=== PATIENT | male | born 1970 | race Two or more races ===

== ENCOUNTER 2016-07-06 13:39 | Outpatient (CLI) ==
[2014-11-02 18:25] VITALS: BMI 46.5
[2016-07-06 14:20] LABS: BASOPHILS % (AUTO) 0.6 % (0.0-3.0); EOSINOPHILS # (AUTO) 0.1 K/ul (0.0-0.7); EOSINOPHILS % (AUTO) 1.3 % (0.0-7.0); HEMATOCRIT 40.4 % (42.0-52.0); HEMOGLOBIN 14.2 g/dl (14.0-18.0); IMMATURE GRANULOCYTE % (AUTO) 0.2 % (0.0-5.0); LYMPHOCYTES # (AUTO) 2.1 K/uL (0.60-3.4); LYMPHOCYTES % (AUTO) 33.1 (10.0-50.0); MEAN CORPUSCULAR HEMOGLOBIN 29.8 pg (27.0-31.0); MEAN CORPUSCULAR HGB CONC 35.1 (31.8-35.4); MEAN CORPUSCULAR VOLUME 84.7 fl (80.0-94.0); MONOCYTES # (AUTO) 0.3 K/uL (0.4-2.0); MONOCYTES % (AUTO) 5.2 (0-10); NEUTROPHILS # (AUTO) 3.8 K/ul (2.0-6.9); NEUTROPHILS % (AUTO) 59.6; PLATELET COUNT 195 10^3/uL (140-440); RED BLOOD COUNT 4.77 10^6/ul (4.70-6.10)
--- NOTE | 2016-07-06 14:29 | US ---
EXAM: Scrotal ultrasound HISTORY: Right testicular pain COMPARISON: None TECHNIQUE: Scrotal ultrasound was performed FINDINGS: Right: Right testicle measures 2.1 x 3.9 x 2.8 cm. Right testicle normal in echogenicity and vascu larity. Normal arterial Doppler flow in the right testicle. There is a 0.8 x 0.4 x 0.6 cm right ep ididymal head cyst. Visualized portion epididymis appears normal with portions of the epididymis not visualized. Trace right hydrocele. Small right varicocele. Left: Left testicle measures 2.7 x 2.5 x 2.6 cm. Left testicle normal in echogenicity vascularity. Normal arterial Doppler flow in the left testicle. Visualized portion epididymis appears normal w ith portions of the epididymis not visualized. No hydrocele. Small left varicocele. IMPRESSION: 1. Normal right and left testicle. 2. Small right epididymal head cyst. Technologist notes this corresponds with an area of "knot" 3. Mild bilateral varicoceles. 4. Trace right hydrocele
[2016-07-06 14:46] LABS: ALBUMIN 4.1 g/dL (3.4-5.0); ALBUMIN/GLOBULIN RATIO 1.24; ANION GAP 10.9; BILIRUBIN,TOTAL 0.69 mg/dL (0.00-1.20); BUN/CREATININE RATIO 15.38; CREATININE 0.78 mg/dL (0.60-1.10); POTASSIUM 3.9 mmol/L (3.5-5.1); TOTAL PROTEIN 7.4 g/dL (6.4-8.2)
== END 2016-07-06 13:40 | disposition home or self-care (01) ==
LOC: RAD 13:39
PROVIDERS: ATTEND Nurse Practitioner Family
DX: N50.811 Right testicular pain (principal); I10 Essential (primary) hypertension; E11.9 Type 2 diabetes mellitus without complications
CPT/HCPCS: 36415; 80053; 83036; 85025

== ENCOUNTER 2016-08-07 16:04 | Outpatient (CLI) ==
[2014-11-02 18:25] VITALS: BMI 46.5
--- NOTE | 2016-08-08 08:01 | DI ---
EXAM: Radiographs, left knee HISTORY: Left knee pain. COMPARISON: 11/09/2011. TECHNIQUE: Four views. FINDINGS: Bone mineralization is normal. No fracture or dislocation identified. There is moderate medial compartment joint space narrowing. Moderate tricompartmental marginal osteophyte formation noted. These findings have worsened since the prior study. No fracture or dislocation identified. Soft tissues are unremarkable. IMPRESSION: Moderate osteoarthritis, worsened from prior study.
--- NOTE | 2016-08-08 08:01 | DI ---
EXAM: Radiographs, right knee HISTORY: Right knee pain. COMPARISON: 11/09/2011. TECHNIQUE: Four views. FINDINGS: Bone mineralization is normal. Moderate medial compartment joint space narrowing noted w ith tricompartmental marginal osteophyte formation, severe in the patellofemoral compartment. No fr acture or dislocation identified. No erosive changes are seen. Suprapatellar joint effusion noted. Since prior study, the degenerative changes are worsened. IMPRESSION: At least moderate degenerative changes, worsened from prior study.
== END 2016-08-07 16:05 | disposition home or self-care (01) ==
LOC: RAD 16:04
PROVIDERS: ATTEND Nurse Practitioner Family
DX: M25.562 Pain in left knee (principal); M25.561 Pain in right knee

== ENCOUNTER 2017-04-29 20:50 | Outpatient (CLI) ==
[2014-11-02 18:25] VITALS: BMI 46.5
== END 2017-04-29 20:51 | disposition home or self-care (01) ==
LOC: NONPT 20:50
PROVIDERS: ATTEND Nurse Practitioner Family
DX: R05 Cough (principal)
CPT/HCPCS: 87502; 87651

== ENCOUNTER 2017-07-31 15:28 | Outpatient (CLI) ==
[2014-11-02 18:25] VITALS: BMI 46.5
== END 2017-07-31 15:29 | disposition home or self-care (01) ==
LOC: RHC-LAB 15:28
PROVIDERS: ATTEND Emergency Medicine
DX: E11.9 Type 2 diabetes mellitus without complications (principal); E78.5 Hyperlipidemia, unspecified; K76.0 Fatty (change of) liver, not elsewhere classified
CPT/HCPCS: 36415; 80053; 80061; 83036; 84443; 85025

== ENCOUNTER 2018-11-14 22:28 | Emergency (ER) | payer MEDICAID, OTHER ==
[2018-11-14 22:41] VITALS: BP 135/87; TEMP 97.3; BMI 40.8
[2018-11-14] MEDS: TORADOL IM STA (23:05)
[2018-11-14] MEDS: DECADRON 4 MG/ML SDV ONE (23:05)
[2018-11-14] MEDS: DECADRON 4 MG/ML SDV IM STA (23:05)
--- NOTE | 2018-11-14 23:47 | DI ---
EXAM: Four view right knee. HISTORY: Knee pain. FINDINGS: The bones are intact with no evidence of fracture. There is degenerative narrowing of the medial joint compartment. There is generative spurring along the margins of the medial and lateral j oint compartments and along the superior and inferior poles of the patella. No soft tissue abnormali ty. Impression: Degenerative changes as described.
--- NOTE | 2018-11-14 23:48 | DI ---
EXAM: Four view left knee. HISTORY: Knee pain. FINDINGS: The bones are intact with no evidence of fracture. There is degenerative narrowing of the medial joint compartment. There is degenerative spurring along the margins of the medial and lateral joint compartments and along the superior and inferior poles of the patella. No soft tissue abnorma lity. Impression: Degenerative changes as described.
--- NOTE | 2018-11-15 00:26 | ED.PDOC ---
General ED Provider: Dr. ITALO TOTH-ER Chief Complaint: Knee Pain/Injury Stated Complaint: my knees hurt Time Seen by Physician: 22:35 Mode of Arrival: Walk-In Information Source: Patient Exam Limitations: No limitations Primary Care Provider: JESSICA ZAMBRANO Nursing and Triage Documentation Reviewed and Agree: Yes Does patient meet sepsis criteria?: No System Inflammatory Response Syndrome: Not Applicable Sepsis Protocol: For patient's 13 years and over: Temp is 96.8 and below OR 101 and greater Pulse >90 BPM Resp >20/minute Acutely Altered Mental Status Are patient's symptoms suggestive of a new infection, such as: -Pneumonia -Skin, Soft Tissue -Endocarditis -UTI -Bone, Joint Infection -Implantable Device -Acute Abdominal Infection -Wound Infection -Meningitis -Blood Stream Catheter Infection -Unknown Musculoskeletal Complaint Exam - Knee Pain Complaint/Exam Mechanism of Injury: Reports: No known trauma Onset/Duration: severalk hours Symptoms Are: Still present Onset of Pain: Reports: Immediate Initial Severity: Moderate Current Severity: Moderate Location: Reports: Diffuse Character: Reports: Dull, Aching, Stiffness Alleviating: Reports: Rest, Position Aggravating: Reports: Movement, Weight bearing, Prolonged standing Associated Signs and Symptoms: Denies: Swelling, Redness, Bruising, Fever, Weakness, Numbness, Tingling Able to Bear Weight: Yes Related History: Reports: Similar episode Knee Findings: Present: Tenderness, Limited range of motion Pavna Test Positive: No Reyna Test Positive: No Limited Range of Motion: Present: Active, Passive Differential Diagnoses: Strain Review of Systems - Review Of Systems Constitutional: Reports: No symptoms Eyes: Reports: No symptoms Ears, Nose, Mouth, Throat: Reports: No symptoms Respiratory: Reports: No symptoms Cardiac: Reports: No symptoms GI: Reports: No symptoms : Reports: No symptoms Musculoskeletal: Reports: Joint pain Skin: Reports: No symptoms Neurological: Reports: No symptoms Endocrine: Reports: No symptoms Hematologic/Lymphatic: Reports: No symptoms All Other Systems: Reviewed and Negative Past Medical History - Past Medical History Previously Healthy: Yes Endocrine: Reports: DM 2, Dyslipidemia Cardiovascular: Reports: Hypertension Respiratory: Reports: None Hematological: Reports: None Gastrointestinal: Reports: None Genitourinary: Reports: None Neuro/Psych: Reports: None Musculoskeletal: Reports: Arthritis Cancer: Reports: None - Surgical History General Surgical History: Reports: Unknown - Family History Family History: Reports: Unknown - Social History Smoking Status: Former smoker Hx Substance Use: No Alcohol Screening: None - Immunizations Tetanus Shot up to Date: Yes (none) Physical Exam - Physical Exam Appearance: Well-appearing, No pain distress, Well-nourished Pain Distress: Mild Eyes: EDER, EOMI, Conjunctiva clear ENT: Ears normal, Nose normal, Oropharynx normal Neck: Supple Respiratory: Airway patent, Breath sounds clear, Breath sounds equal, Respirations nonlabored Cardiovascular: RRR, Pulses normal, No rub, No murmur GI/: Soft, Nontender, No masses, Bowel sounds normal, No Organomegaly Musculoskeletal: Limited ROM Skin: Warm Neurological: Sensation intact, Motor intact, Reflexes intact, Cranial nerves intact, Alert, Oriented Psychiatric: Affect appropriate, Mood appropriate Interpretation - Radiology Interpretation Radiology Interpretation By: Radiologist Radiology Results: Positive Re-Evaluation - Re-Evaluation Time of Re-Evaluation: 00:25 Status: Improved Vital Signs Stable: Yes Pain Level: 2 Appearance: NAD Lungs: Clear Skin: Warm and Dry Neuro: Alert and Oriented X3 CV: RRR Critical Care Note - Critical Care Note Total Time (mins): 0 Course - Course Hematology/Chemistry: 11/14/18 23:05 11/14/18 23:05 Orders, Labs, Meds: Lab Review 11/14/18 11/14/18 23:05 23:05 WBC 6.69 RBC 4.39 L Hgb 13.4 L Hct 38.4 L MCV 87.5 MCH 30.5 MCHC 34.9 RDW Coeff of Sofía 12.9 Plt Count 210 Immature Gran % (Auto) 0.1 Neut % (Auto) 55.5 Lymph % (Auto) 35.6 [place] % (Auto) 6.6 Eos % (Auto) 1.6 Baso % (Auto) 0.6 Immature Gran # (Auto) 0.0 Neut # (Auto) 3.7 Lymph # (Auto) 2.4 [place] # (Auto) 0.4 Eos # (Auto) 0.1 Baso # (Auto) 0.0 ESR 6 Sodium 139.7 Potassium 3.55 Chloride 106.1 Carbon Dioxide 27.9 Anion Gap 9.25 BUN 20.4 H Creatinine 0.96 Estimated GFR (MDRD) 84.00 BUN/Creatinine Ratio 21.25 Glucose 145.5 H Uric Acid 5.98 Calcium 8.63 Orders Category Date Time Status BASIC METABOLIC PANEL Stat LAB 11/14/18 23:05 Completed C-REACTIVE PROTEIN Stat LAB 11/14/18 23:05 Received CBC W/ AUTO DIFF Stat LAB 11/14/18 23:05 Completed ESR Stat LAB 11/14/18 23:05 Completed URIC ACID Stat LAB 11/14/18 23:05 Completed Dexamethasone 4 mg/ml Inj [Decadron 4 mg/ml Sdv] MEDS 11/14/18 23:01 Discontinued 8 mg .ROUTE .STK-MED ONE Dexamethasone 4 mg/ml Inj [Decadron 4 mg/ml Sdv] MEDS 11/14/18 22:55 Discontinued 8 mg IM ONCE STA Ketorolac Tromethamine [Toradol] MEDS 11/14/18 22:55 Discontinued 60 mg IM ONCE STA KNEE, LEFT 4 VIEWS Stat RADS 11/14/18 22:55 Completed KNEE, RIGHT 4 VIEWS Stat RADS 11/14/18 22:55 Completed Medications Discontinued Medications Generic Name Dose Route Start Last Admin Trade Name Freq PRN Reason Stop Dose Admin Dexamethasone Sodium Phosphate 8 mg 11/14/18 22:55 11/14/18 23:05 Decadron 4 Mg/Ml Sdv IM 11/14/18 22:56 8 mg ONCE STA Administration Ketorolac Tromethamine 60 mg 11/14/18 22:55 11/14/18 23:05 Toradol IM 11/14/18 22:56 60 mg ONCE STA Administration Vital Signs: Temp Pulse Resp BP Pulse Ox 11/14/18 22:30 97.3 F L 88 20 135/87 93 L Departure - Departure Time of Disposition: 00:25 Disposition: HOME SELF-CARE Discharge Problem: Knee pain Instructions: Arthralgia (ED), Knee Pain (ED) Condition: Good Pt referred to PMD for follow-up: Yes IPMP verified?: No Additional Instructions: medrol dose pack(start tomorrow)---monitor blood sugars--f/u with pcp Allergies/Adverse Reactions: Allergies No Known Allergies Allergy (Verified 11/14/18 22:40) Disposition Discussed With: Patient, Family
== END 2018-11-15 00:28 | disposition home or self-care (01) ==
LOC: ED 22:28
DX: M25.562 Pain in left knee (principal); M25.561 Pain in right knee
CPT/HCPCS: 36415; 80048; 84550; 85025; 85651; 86140; 96372; 99283